=== PATIENT | male | born 1940 | race Caucasian/White ===

== ENCOUNTER 2021-03-07 23:03 | Inpatient (IN) | payer MEDICARE, OTHER ==
[~2021-03-07] VITALS: Ht 198.1 cm; Wt 83.5 kg
[~2021-03-07 23:03] MED LIST: ALLOPURINOL300 MG PO; ASPIRIN CHEWABL81 MG PO; ASPIRIN EC81 MG PO; COMBIGAN EYE DRO5 ML OU; COREG 6.25MG6.25 MG PO; COREG6.25 MG PO; CYMBALTA 30MG C30 MG PO; DESONIDE59 ML TOP; DOXAZOSIN MESYLA8 MG PO; ERTAPENEM1 GM IV; FERROUS SULFAT325 MG PO; FLOMAX0.4 MG PO; FOLIC ACID1 MG PO; LAXATIVE25 MG PO; LUMIGAN5 ML OU; MELOXICAM15 MG PO; MIRALAX17 GM PO; NEXIUM40 MG PO; NORCO 5-325 TA1 EACH PO; PERCOCET 5-3251 EACH PO; PLAQUENIL200 MG PO; PLAVIX75 MG PO; PREDNISONE 10MG10 MG PO; XARELTO10 MG PO; ZETIA10 MG PO; ZYRTEC10 M3 PO; ZYRTEC10 MG PO
[2021-03-07 23:58] LABS: BASOPHIL 0.6 % (0-2); EOSINOPHIL 3.9 % (0-7); HCT 29.3 % (42.0-52.0); HGB 9.2 g/dl (13.2-18.0); LYMPHOCYTE 30.1 % (15-48); MCHC 31.4 g/dL (32.0-36.0); MCV 89.1 fL (78.0-100.0); MONOCYTE 8.7 % (0-12); MPV 11.3 fL (6.0-9.5); NEUTROPHIL 56.3 % (41-80); NRBC 0; PLT 265 K/uL (150-400); RBC 3.29 M/uL (4.70-6.00); RDW 15.3 % (11.5-14.0); WBC 7.8 K/uL (4.0-10.5)
[2021-03-08 00:28] LABS: BUN/CREAT RATIO (CALC) 33.3 RATIO; CREATININE 0.99 mg/dL (0.67-1.17); POTASSIUM 3.9 mmol/L (3.5-5.1)
[2021-03-08 02:07] LABS: BILIRUBIN NEGATIVE (NEGATIVE); BLOOD NEGATIVE Ery/uL (NEGATIVE); COLOR YELLOW (YELLOW); GLUCOSE (U) NORMAL (NORMAL); LEUKOCYTES 2+ Leu/uL (NEGATIVE); NITRITE NEGATIVE (NEGATIVE); PROTEIN TRACE (LOW) mg/dL (NEGATIVE); SPECIFIC GRAVITY 1.015 (1.001-1.030); UROBILINOGEN 0.2 mg/dL (0.2-1.0); pH 7.5 (5.0-9.0)
[2021-03-08 02:10] LABS: CLARITY SLIGHTLY HAZY (CLEAR)
[2021-03-08 02:12] LABS: URINARY RBC RARE
[2021-03-08 02:13] LABS: AMORPHOUS PHOSPHATE CRYSTALS MODERATE; BACTERIA TRACE
[2021-03-08 02:17] LABS: MUCOUS TRACE
[2021-03-08] MEDS ORDERED: ALLOPURINOL300 MG GT (09:37)
[2021-03-08] MEDS ORDERED: AMLODIPINE BES2.5 MG GT (09:38)
[2021-03-08] MEDS ORDERED: ROCEPHIN 1GM1 GM IV (09:39)
[2021-03-08] MEDS ORDERED: COREG12.5 MG GT (09:39)
[2021-03-08] MEDS ORDERED: ASPIRIN EC81 MG GT (09:39)
[2021-03-08] MEDS ORDERED: VITAMIN B-121000 MC1 IM (10:27)
[2021-03-08] MEDS ORDERED: COLACE100 MG GT (10:27)
[2021-03-08] MEDS ORDERED: CYMBALTA 30MG C30 MG GT (10:28)
[2021-03-08] MEDS ORDERED: GABAPENTIN (10:29)
[2021-03-08] MEDS ORDERED: METFORMIN HCL500 MG GT (10:29)
[2021-03-08] MEDS ORDERED: MVI GT (10:30)
[2021-03-08] MEDS ORDERED: LOVAZA1 GM GT (10:31)
[2021-03-08] MEDS ORDERED: NITROQUIK SL0.4 MG SL (10:31)
[2021-03-08] MEDS ORDERED: MIRALAX17 GM GT (10:31)
[2021-03-08] MEDS ORDERED: PREDNISONE 10MG10 MG GT (10:32)
[2021-03-08] MEDS ORDERED: SIMETHICONE125 M1 GT (10:32)
[2021-03-08] MEDS ORDERED: FLOMAX0.4 MG GT (10:33)
[2021-03-08] MEDS ORDERED: ULTRAM50 MG GT (10:33)
[2021-03-08] MEDS ORDERED: VITAMIN B1 GT (10:34)
[2021-03-08] MEDS ORDERED: ZOFRAN GT (10:34)
[2021-03-08] MEDS ORDERED: ACETAMINOPHEN325 MG GT (10:34)
--- NOTE | 2021-03-08 10:47 | NUR ---
03/08/21 Mr. Martínez was admitted from [facility]. [facility] will accept back per Nikole Dhillon. Mr. Martínez and his daughter, Melissa Espitia are in agreement. - Report given to Dr. Alvarado.
--- NOTE | 2021-03-08 11:53 | NUR ---
Discussed TF recommendations with MD Alvarado. D/T product availability will start Glucerna 1.2 @ goal of 75cc. rec starting slowly d/t dghtr states patient had cramping with feeds at [facility]TC and TF were held. Will monitor d/c and POC.
[2021-03-09 05:55] LABS: BASOPHIL 0.5 % (0-2); EOSINOPHIL 4.7 % (0-7); HCT 26.2 % (42.0-52.0); LYMPHOCYTE 32.3 % (15-48); MCH 27.7 pg (25.0-31.0); MCHC 30.5 g/dL (32.0-36.0); MCV 90.7 fL (78.0-100.0); MONOCYTE 10.8 % (0-12); MPV 10.3 fL (6.0-9.5); NEUTROPHIL 51.2 % (41-80); NRBC 0; PLT 227 K/uL (150-400); RBC 2.89 M/uL (4.70-6.00); RDW 14.6 % (11.5-14.0); WBC 5.6 K/uL (4.0-10.5)
[2021-03-09 06:29] LABS: BILIRUBIN - TOTAL 0.5 mg/dL (0.2-1.0); BUN/CREAT RATIO (CALC) 20.7 RATIO; CREATININE 0.82 mg/dL (0.67-1.17); GLOBULIN (CALCULATION) 3.9 g/dL; POTASSIUM 4.4 mmol/L (3.5-5.1); TOTAL PROTEIN 5.9 g/dL (6.4-8.2)
[2021-03-09] MEDS ORDERED: AMPICILLIN TRI500 M1 PO (16:12)
--- NOTE | 2021-03-09 18:36 | NUR ---
PT RECEIVED BED AT [facility], CALLED [facility] AND INFORMED HER, CALL REPORT TO VIRAJ GRANDA AT [facility] @[phone]. EMS WAS CALLED FOR TRANSPORT TO HOSPITAL. AWAITING TRANSFER AT THIS TIME. WILL GIVE CHEMICAL STRENGTH TESTER REPORT.
--- NOTE | 2021-03-09 19:16 | NUR ---
EMS CALLED AGAIN TO SEE WHEN THEY WOULD BE PICKING UP PT TO TAKE TO [facility]. EMS SAID NOT FOR SURE AT THIS TIME. TALKED TO CHELSIE MAURICIO AND INFORMED HER THAT NOT FOR SURE WHEN PT WILL BE LEAVING. ASKED ABOUTIF NEEDED TO START TUBE FEEDING BACK, CHELSIE SAID NO HE WILL BE LEAVING.
== END 2021-03-09 19:42 | disposition other institution (70) | DRG 57 ==
LOC: FER 23:03 → FMS 03-08 05:39
PROVIDERS: Nurse Practitioner; Nurse Practitioner Family; ADMIT Allergy & Immunology Allergy
PROC: 3E0234Z Introduction of Serum, Toxoid and Vaccine into Muscle, Percutaneous Approach (ICD-10-PCS; principal; 2021-03-08)
DX: I69.30 Unspecified sequelae of cerebral infarction (principal); S42.402A Unspecified fracture of lower end of left humerus, initial encounter for closed fracture; N30.00 Acute cystitis without hematuria; Z16.21 Resistance to vancomycin; J90 Pleural effusion, not elsewhere classified; J98.11 Atelectasis; I95.1 Orthostatic hypotension; I65.22 Occlusion and stenosis of left carotid artery; R47.81 Slurred speech; W01.0XXA Fall on same level from slipping, tripping and stumbling without subsequent striking against object, initial encounter; Z91.81 History of falling; Y93.9 Activity, unspecified; Y92.129 Unspecified place in nursing home as the place of occurrence of the external cause; Z79.899 Other long term (current) drug therapy; Z79.82 Long term (current) use of aspirin; D73.89 Other diseases of spleen; R51.9 Headache, unspecified; D73.3 Abscess of spleen; R13.10 Dysphagia, unspecified; B95.2 Enterococcus as the cause of diseases classified elsewhere; E11.9 Type 2 diabetes mellitus without complications; Z66 Do not resuscitate; Z20.822 Contact with and (suspected) exposure to COVID-19; K21.9 Gastro-esophageal reflux disease without esophagitis; N40.0 Benign prostatic hyperplasia without lower urinary tract symptoms; H40.9 Unspecified glaucoma; I50.9 Heart failure, unspecified; Z93.1 Gastrostomy status; I25.10 Atherosclerotic heart disease of native coronary artery without angina pectoris; I25.2 Old myocardial infarction; M19.90 Unspecified osteoarthritis, unspecified site; F32.9 Major depressive disorder, single episode, unspecified; F41.9 Anxiety disorder, unspecified; M10.9 Gout, unspecified; Z98.42 Cataract extraction status, left eye; Z98.41 Cataract extraction status, right eye; Z96.651 Presence of right artificial knee joint; Z96.611 Presence of right artificial shoulder joint; Z83.3 Family history of diabetes mellitus
CPT/HCPCS: 36415; 70450; 70551; 71250; 72125; 73080; 80048; 80053; 81001; 85025; 90471; 90714; 93880; 94760; 97110; 97162; 97166; 97530-GP; 97535; C9113; G0378; J0696; J2060; J3480; J7030; U0002

== ENCOUNTER 2021-07-09 19:13 | Inpatient (IN) | payer MEDICARE, OTHER ==
[~2021-07-09] VITALS: Ht 191 cm; Wt 90.0 kg
[~2021-07-09 19:13] MED LIST changes: +ACETAMINOPHEN325 MG GT; +ALLOPURINOL300 MG GT; +AMLODIPINE BES2.5 MG GT; +AMPICILLIN TRI500 M1 PO; +ASPIRIN EC81 MG GT; +COLACE100 MG GT; +COREG12.5 MG GT; +CYMBALTA 30MG C30 MG GT; +FLOMAX0.4 MG GT; +GABAPENTIN; +LOVAZA1 GM GT; +METFORMIN HCL500 MG GT; +MIRALAX17 GM GT; +MVI GT; +NITROQUIK SL0.4 MG SL; +PREDNISONE 10MG10 MG GT; +ROCEPHIN 1GM1 GM IV; +SIMETHICONE125 M1 GT; +ULTRAM50 MG GT; +VITAMIN B-121000 MC1 IM; +VITAMIN B1 GT; +ZOFRAN GT
[2021-07-09 20:51] LABS: BASOPHIL 0.3 % (0-2); EOSINOPHIL 0.8 % (0-7); HCT 32.5 % (42.0-52.0); HGB 9.7 g/dl (13.2-18.0); LYMPHOCYTE 7.3 % (15-48); MCH 25.7 pg (25.0-31.0); MCHC 29.8 g/dL (32.0-36.0); MCV 86.2 fL (78.0-100.0); MONOCYTE 5.9 % (0-12); MPV 9.8 fL (6.0-9.5); NRBC 0; PLT 355 K/uL (150-400); RBC 3.77 M/uL (4.70-6.00); RDW 19.9 % (11.5-14.0); WBC 12.8 K/uL (4.0-10.5)
[2021-07-09 20:55] LABS: INR 1.18 (0.9-1.2); PROTHROMBIN TIME 14.4 SECONDS (11.8-13.4); PTT 30.5 SECONDS (24.4-34.7)
[2021-07-09 21:02] LABS: ALBUMIN 2.6 g/dL (3.4-5.0); BILIRUBIN - TOTAL 0.3 mg/dL (0.2-1.0); BUN/CREAT RATIO (CALC) 19.1 RATIO; CREATININE 1.36 mg/dL (0.67-1.17); GLOBULIN (CALCULATION) 3.7 g/dL; MAGNESIUM 1.9 mg/dL (1.8-2.4); POTASSIUM 4.5 mmol/L (3.5-5.1); TOTAL PROTEIN 6.3 g/dL (6.4-8.2)
[2021-07-09 21:09] LABS: LACTIC ACID 2.8 mmol/L (0.4-1.9)
[2021-07-09 22:02] LABS: BILIRUBIN NEGATIVE (NEGATIVE); BLOOD NEGATIVE Ery/uL (NEGATIVE); CLARITY CLEAR (CLEAR); COLOR YELLOW (YELLOW); GLUCOSE (U) NORMAL (NORMAL); LEUKOCYTES NEGATIVE Leu/uL (NEGATIVE); NITRITE NEGATIVE (NEGATIVE); PROTEIN NEGATIVE (NEGATIVE); SPECIFIC GRAVITY 1.025 (1.001-1.030); UROBILINOGEN 0.2 mg/dL (0.2-1.0)
[2021-07-10 06:52] LABS: BASOPHIL 0.7 % (0-2); EOSINOPHIL 2.6 % (0-7); HCT 32.4 % (42.0-52.0); HGB 9.7 g/dl (13.2-18.0); LYMPHOCYTE 11.7 % (15-48); MCH 26.1 pg (25.0-31.0); MCHC 29.9 g/dL (32.0-36.0); MCV 87.1 fL (78.0-100.0); MONOCYTE 8.6 % (0-12); MPV 9.6 fL (6.0-9.5); NEUTROPHIL 74.3 % (41-80); NRBC 0; PLT 328 K/uL (150-400); RBC 3.72 M/uL (4.70-6.00); RDW 19.8 % (11.5-14.0); WBC 11.2 K/uL (4.0-10.5)
[2021-07-10 07:28] LABS: BUN/CREAT RATIO (CALC) 22.9 RATIO; CREATININE 1.05 mg/dL (0.67-1.17)
[2021-07-10] MEDS ORDERED: PREDNISONE 10MG10 MG PO (08:30)
[2021-07-10] MEDS ORDERED: FLOMAX0.4 MG PO (08:31)
[2021-07-10] MEDS ORDERED: PLAQUENIL200 MG PO (08:31)
[2021-07-10] MEDS ORDERED: ALLOPURINOL300 MG PO (08:32)
[2021-07-10] MEDS ORDERED: ELAVIL50 MG PO (08:32)
[2021-07-10] MEDS ORDERED: CYMBALTA 30MG C30 MG PO (08:32)
[2021-07-10] MEDS ORDERED: ASPIRIN EC81 MG PO (08:33)
[2021-07-10] MEDS ORDERED: ZYRTEC10 M3 PO (08:33)
[2021-07-10] MEDS ORDERED: ALLEGRA ALLERG180 M1 PO (08:34)
[2021-07-10] MEDS ORDERED: VITAMIN B-121000 MC1 PO (08:35)
[2021-07-10] MEDS ORDERED: IRON18 MG PO (08:35)
[2021-07-10] MEDS ORDERED: AMOXICILLIN500 MG PO (08:36)
[2021-07-10] MEDS ORDERED: TUSSI-PRES B LIQ5 ML PO (08:37)
--- NOTE | 2021-07-10 16:37 | NUR ---
07/10/21 Mr. Martínez lives alone. His nephew lives next door and a daughter lives near by. He was independent with mobility prior to admission. He has a wc, scooter, cane, electric wc, 3in1, elevated commode, and s. seat aviable to him. - Mr. Maria has requested a SNF placement at [facility] following hip surgery. He said he wishes to go home if [facility] cannot accept him. A referral was made to [facility]; therapy notes will be sent after surgery.
[2021-07-11] MEDS ORDERED: PERCOCET 5-3251 EACH PO ×2 (06:55→08:45)
--- NOTE | 2021-07-11 16:04 | NUR ---
07/11/21 [facility] patient for admission on 07/13/21. They can accept AFTER 3:00. Please call report to: [phone] and fax DS to: [phone]. Melissa Espitia, daughter / POA ([phone]) will transport if patient does not meet criteria for EMS.
[2021-07-12 06:05] LABS: BASOPHIL 0.2 % (0-2); EOSINOPHIL 1.1 % (0-7); HCT 29.7 % (42.0-52.0); LYMPHOCYTE 7.6 % (15-48); MCHC 30.3 g/dL (32.0-36.0); MCV 85.8 fL (78.0-100.0); MONOCYTE 7.6 % (0-12); MPV 9.8 fL (6.0-9.5); NEUTROPHIL 82.2 % (41-80); NRBC 0; PLT 265 K/uL (150-400); RBC 3.46 M/uL (4.70-6.00); RDW 19.7 % (11.5-14.0); WBC 11.2 K/uL (4.0-10.5)
[2021-07-12 06:26] LABS: BUN/CREAT RATIO (CALC) 22.1 RATIO; CREATININE 0.86 mg/dL (0.67-1.17); POTASSIUM 4.8 mmol/L (3.5-5.1)
[2021-07-13 06:10] LABS: BASOPHIL 0.4 % (0-2); EOSINOPHIL 4.6 % (0-7); HGB 8.4 g/dl (13.2-18.0); LYMPHOCYTE 11.6 % (15-48); MCH 25.9 pg (25.0-31.0); MCV 86.4 fL (78.0-100.0); MONOCYTE 9.8 % (0-12); MPV 9.8 fL (6.0-9.5); NEUTROPHIL 72.4 % (41-80); NRBC 0; PLT 255 K/uL (150-400); RBC 3.24 M/uL (4.70-6.00); RDW 19.7 % (11.5-14.0)
[2021-07-13] MEDS ORDERED: ASPIRIN81 MG PO (12:10)
[2021-07-13] MEDS ORDERED: MIRALAX17 GM PO (12:10)
[2021-07-13] MEDS ORDERED: PERCOCET 5-3251 EACH PO (12:16)
== END 2021-07-13 20:00 | DRG 481 ==
LOC: FER 19:13 → FMS 22:47
PROVIDERS: Emergency Medicine; Orthopaedic Surgery; ADMIT Allergy & Immunology
PROC: 0QS704Z Reposition Left Upper Femur with Internal Fixation Device, Open Approach (ICD-10-PCS; principal; 2021-07-09)
DX: S72.142A Displaced intertrochanteric fracture of left femur, initial encounter for closed fracture (principal); D62 Acute posthemorrhagic anemia; E11.9 Type 2 diabetes mellitus without complications; M10.9 Gout, unspecified; I10 Essential (primary) hypertension; E78.5 Hyperlipidemia, unspecified; Z20.822 Contact with and (suspected) exposure to COVID-19; F32.9 Major depressive disorder, single episode, unspecified; F41.9 Anxiety disorder, unspecified; K21.9 Gastro-esophageal reflux disease without esophagitis; D50.9 Iron deficiency anemia, unspecified; N40.0 Benign prostatic hyperplasia without lower urinary tract symptoms; I25.10 Atherosclerotic heart disease of native coronary artery without angina pectoris; M19.90 Unspecified osteoarthritis, unspecified site; Z96.651 Presence of right artificial knee joint; Z96.611 Presence of right artificial shoulder joint; M06.9 Rheumatoid arthritis, unspecified; Z79.52 Long term (current) use of systemic steroids; Z86.16 Personal history of COVID-19; Z87.440 Personal history of urinary (tract) infections; Z98.41 Cataract extraction status, right eye; Z98.42 Cataract extraction status, left eye; Z98.890 Other specified postprocedural states; Z87.891 Personal history of nicotine dependence; Z79.82 Long term (current) use of aspirin; Z79.899 Other long term (current) drug therapy
CPT/HCPCS: 36415; 71045; 72192; 73501; 73502; 76000; 80048; 80053; 81003; 83605; 83690; 83735; 85025; 85610; 85730; 86850; 86900; 86901; 93005; 94010; 94667; 94668; 97110; 97163; 97166; 97530-GP; 97535; C1713; J0697; J1170; J1200; J2370; J2405; J2704; J3010; J7030; J7120; J7512; U0002

== ENCOUNTER 2022-01-19 14:20 | Emergency (ER) | payer MEDICARE, OTHER ==
[~2022-01-19] VITALS: Ht 190.5 cm; Wt 102.1 kg
[~2022-01-19 14:20] MED LIST changes: +ALLEGRA ALLERG180 M1 PO; +AMOXICILLIN500 MG PO; +ASPIRIN81 MG PO; +ELAVIL50 MG PO; +IRON18 MG PO; +TUSSI-PRES B LIQ5 ML PO; +VITAMIN B-121000 MC1 PO
[2022-01-19] MEDS ORDERED: CARVEDILOL12.5 MG PO (14:34)
[2022-01-19] MEDS ORDERED: ISOSORBIDE MONO30 MG PO (14:34)
[2022-01-19] MEDS ORDERED: LASIX20 MG PO (14:35)
[2022-01-19] MEDS ORDERED: GABAPENTIN600 MG PO (14:35)
[2022-01-19] MEDS ORDERED: NEXIUM20 M1 PO (14:37)
[2022-01-19] MEDS ORDERED: NORCO 5-325 TA1 EACH PO (16:00)
== END 2022-01-19 16:44 | disposition home or self-care (01) ==
LOC: FER 14:20
DX: M25.552 Pain in left hip (principal); I10 Essential (primary) hypertension; I25.2 Old myocardial infarction; I25.10 Atherosclerotic heart disease of native coronary artery without angina pectoris
CPT/HCPCS: 73502; 96372; J1100; J1885

== ENCOUNTER 2022-03-25 11:11 | Day surgery (SDCO) | payer MEDICARE, OTHER ==
[~2022-03-25] VITALS: Ht 190.5 cm; Wt 102.1 kg
[~2022-03-25 11:11] MED LIST changes: +BACTRIM DS TAB1 EACH PO; +CARVEDILOL12.5 MG PO; +GABAPENTIN600 MG PO; +ISOSORBIDE MONO30 MG PO; +LASIX20 MG PO; +NEXIUM20 M1 PO
[2022-03-25 12:32] LABS: BASOPHIL 0.8 % (0-2); EOSINOPHIL 2.2 % (0-7); HCT 39.9 % (42.0-52.0); HGB 12.9 g/dl (13.2-18.0); LYMPHOCYTE 12.3 % (15-48); MCH 31.2 pg (25.0-31.0); MCHC 32.3 g/dL (32.0-36.0); MCV 96.4 fL (78.0-100.0); NEUTROPHIL 71.8 % (41-80); NRBC 0; PLT 187 K/uL (150-400); RBC 4.14 M/uL (4.70-6.00); RDW 14.7 % (11.5-14.0); WBC 11.4 K/uL (4.0-10.5)
[2022-03-25 12:58] LABS: ALBUMIN 3.1 g/dL (3.4-5.0); BILIRUBIN - TOTAL 1.2 mg/dL (0.2-1.0); BUN/CREAT RATIO (CALC) 24.6 RATIO; CREATININE 1.3 mg/dL (0.67-1.17); GLOBULIN (CALCULATION) 3.8 g/dL; POTASSIUM 4.2 mmol/L (3.5-5.1); TOTAL PROTEIN 6.9 g/dL (6.4-8.2)
[2022-03-25 16:42] LABS: BILIRUBIN NEGATIVE (NEGATIVE); BLOOD 1+ Ery/uL (NEGATIVE); CLARITY HAZY (CLEAR); COLOR YELLOW (YELLOW); GLUCOSE (U) NORMAL (NORMAL); LEUKOCYTES NEGATIVE Leu/uL (NEGATIVE); NITRITE NEGATIVE (NEGATIVE); PROTEIN TRACE (LOW) mg/dL (NEGATIVE); SPECIFIC GRAVITY >=1.030 (1.001-1.030); UROBILINOGEN 0.2 mg/dL (0.2-1.0)
[2022-03-25 16:54] LABS: BACTERIA 1+; MUCOUS MODERATE; SQUAMOUS EPITHELIAL CELLS RARE
[2022-03-26 06:58] LABS: BASOPHIL 0.9 % (0-2); EOSINOPHIL 3.6 % (0-7); HCT 37.1 % (42.0-52.0); HGB 11.8 g/dl (13.2-18.0); LYMPHOCYTE 11.9 % (15-48); MCH 31.1 pg (25.0-31.0); MCHC 31.8 g/dL (32.0-36.0); MCV 97.6 fL (78.0-100.0); MONOCYTE 10.3 % (0-12); MPV 10.2 fL (6.0-9.5); NEUTROPHIL 70.2 % (41-80); NRBC 0; PLT 164 K/uL (150-400); RDW 14.6 % (11.5-14.0); WBC 8.7 K/uL (4.0-10.5)
[2022-03-26 08:10] LABS: BUN/CREAT RATIO (CALC) 26.9 RATIO; CREATININE 1.08 mg/dL (0.67-1.17); POTASSIUM 4.2 mmol/L (3.5-5.1)
--- NOTE | 2022-03-26 13:44 | NUR ---
MET WITH PATIENT. HE STATED THAT HE HAS HH AND A NURSE THREE TIMES A WEEK. HE ALSO HAS A EXTERMINATION SUPERVISOR 3 X'S A WEEK. ADVISED PT THAT HIS DAUGHTER IS CONCERNED AND FEELS THAT HE NEEDS TO GO TO [facility]. PT. STATED THAT HE IS NOT GOING TO A REHAB. HE STATED THAT HE HAD NOT BEEN CAREFUL TAKING CARE OF HIMSELF, BUT REALIZES THAT HE MUST BE MORE CAREFUL. ADVISED HIM THAT DAUGHTER ALSO SAID THAT SHE WOULD NOT BE COMING TO GET HIM OR TAKE HIM TO DR. RAMIREZ. PT STATED THAT HE WOULD TAKE A TAXI HOME AND THAT HIS CLEANING LADY WOULD TAKE HIM TO THE DR. RAMIREZ. TC TO INTREPID AND SPOKE WITH JULIUS. ADVISED HER OF THE SITUATION. THEY WILL DISCUSS WITH PT ABOUT GETTING HIS MEDICATION PREPACKAGED AND MONITOR HIS DR. RAMIREZ WELL.
[2022-03-27] MEDS ORDERED: LEVAQUIN750 MG PO (12:30)
--- NOTE | 2022-03-27 21:00 | NUR ---
PATIENT WAS DISCHARGED BEFORE BEING EVALUATED BY WOUND CARE.
== END 2022-03-27 13:09 | disposition home health service (06) ==
LOC: FER 11:11 → FMS 15:08
PROVIDERS: Emergency Medicine; ADMIT Internal Medicine
DX: S91.301A Unspecified open wound, right foot, initial encounter (principal); E11.40 Type 2 diabetes mellitus with diabetic neuropathy, unspecified; R10.9 Unspecified abdominal pain; R11.2 Nausea with vomiting, unspecified; I25.10 Atherosclerotic heart disease of native coronary artery without angina pectoris; I10 Essential (primary) hypertension; N19 Unspecified kidney failure; E11.36 Type 2 diabetes mellitus with diabetic cataract; H26.9 Unspecified cataract; Z98.890 Other specified postprocedural states; Z86.73 Personal history of transient ischemic attack (TIA), and cerebral infarction without residual deficits; Z95.5 Presence of coronary angioplasty implant and graft; Z87.891 Personal history of nicotine dependence; X58.XXXA Exposure to other specified factors, initial encounter
CPT/HCPCS: 36415; 71045; 80048; 80053; 81001; 83605; 85025; 87040; 93005; G0378; J0780; J1650; J2185; J2270; J2405; J3370; J7030; J7040; J7512